=== PATIENT | female | born 1995 | race African-American/Black ===

== ENCOUNTER 2023-09-15 14:13 | Emergency (ER) | payer MEDICAID ==
[~2023-09-15] VITALS: Ht 167.6 cm; Wt 56.8 kg
[2023-09-15 14:20] VITALS: BP 134/62; PULSE 96; RESP 18; TEMP 98.1; O2SAT 100
[2023-09-15] MEDS ORDERED: NALO4SPR BOTHNSTRLS (16:01)
[2023-09-15] MEDS ORDERED: BUPR8TAB3 SL (16:01)
[2023-09-15] MEDS: BUPRENORPHINE 8MG SL TABLET SL ONE (16:10)
[2023-09-15] MEDS ORDERED: METR-167 MT (16:13)
[2023-09-15] MEDS ORDERED: DOXY100C5 MT (16:13)
[2023-09-15 16:30] LABS: BASOPHILS % 0.7 % (0.0-2.0); DIFFERENTIAL COMMENT 0; EOSINOPHILS % 0.1 % (0.0-5.0); HEMATOCRIT. 41.5 % (36.0-48.0); HEMOGLOBIN. 13.6 g/dL (12.0-16.0); LYMPHOCYTES % 38.3 % (20.0-50.0); MEAN CORPUSCULAR HEMOGLOBIN 25.8 pg (28.0-32.0); MEAN CORPUSCULAR HGB CONC 32.8 g/dL (31.0-37.0); MEAN CORPUSCULAR VOLUME 78.7 fL (81.0-99.0); MEAN PLATELET VOLUME 7.9 fl (7.4-10.4); NEUTROPHILS % 50.9 % (40.0-76.0); PLATELET 338 x1000/uL (130-400); RED BLOOD CELL COUNT 5.28 mill/uL (4.2-5.4); RED CELL DISTRIBUTION WIDTH 13.4 % (11.6-14.6); WHITE BLOOD COUNT 5.3 x1000/uL (4.5-11.0)
[2023-09-15 16:34] LABS: *AMPHETAMINES SCREEN URINE NEGATIVE (NEGATIVE); *BARBITURATES SCREEN URINE NEGATIVE (NEGATIVE); *BENZODIAZEPINES SCREEN URINE NEGATIVE (NEGATIVE); *COCAINE SCREEN URINE PRESUMPTIVE POSITIVE (NEGATIVE); CANNABINOID URINE SCREEN PRESUMPTIVE POSITIVE (NEGATIVE); ECSTASY MDMA SCREEN URINE NEGATIVE (NEGATIVE); METHADONE URINE SCREEN NEGATIVE (NEGATIVE); OPIATES URINE SCREEN PRESUMPTIVE POSITIVE (NEGATIVE); PHENCYCLIDINE URINE SCREEN NEGATIVE (NEGATIVE)
[2023-09-15 16:35] LABS: CARBON DIOXIDE 26 mEq/L (21-32); CHLORIDE 107 mEq/L (98-107); POTASSIUM 3.6 mEq/L (3.5-5.1); SODIUM 139 mEq/L (136-145)
[2023-09-15] MEDS: LIDOCAINE HCL 1% 20ML VIAL (Pyxis) INJ INFIL ONE (16:35)
[2023-09-15] MEDS: CEFTRIAXONE SODIUM 500MG VIAL IM ONE (16:35)
[2023-09-15 16:40] LABS: CREATININE 0.9 mg/dL (0.6-1.0)
[2023-09-15 16:41] LABS: GLUCOSE 85 mg/dL (70-105); UREA NITROGEN BLOOD 11 mg/dL (9-23)
[2023-09-15 16:42] LABS: ALANINE AMINOTRANSFERASE 11 IU/L (10-49); ALBUMIN 4.7 g/dL (3.2-4.8); ASPARTATE AMINOTRANSFERASE 17 IU/L (<34)
[2023-09-15 16:43] LABS: BILIRUBIN TOTAL 0.5 mg/dL (0.1-1.0); PROTEIN TOTAL 8.2 g/dL (6.0-8.3)
[2023-09-15 16:44] LABS: ETHANOL BLOOD < 10 mg/dL (<10)
[2023-09-15 16:54] LABS: HCG SCREEN NEGATIVE
[2023-09-18 08:10] LABS: CHLAMYDIA TRACHOMATIS NAA Negative (Negative); NEISSERIA GONORRHOEAE NAA Negative (Negative)
== END 2023-09-15 17:15 | disposition home or self-care (01) ==
LOC: ER 14:13
DX: F11.23 Opioid dependence with withdrawal (principal); N89.8 Other specified noninflammatory disorders of vagina
CPT/HCPCS: 87491; 87591; 80053; 80305; 81025; 80320; 84703; 85025; 36415; 96372; 99283; J0696; J3490; Z7610 ×3; G0480

== ENCOUNTER 2024-06-07 15:04 | Emergency (ER) | payer SELFPAY ==
[~2024-06-07] VITALS: Ht 157.5 cm; Wt 50.0 kg
[~2024-06-07 15:04] MED LIST: BUPR8TAB3 SL; DOXY100C5 MT; METR-167 MT; NALO4SPR BOTHNSTRLS
[2024-06-07 15:06] VITALS: BP 118/72; PULSE 115; RESP 18; TEMP 36.9; O2SAT 100
== END 2024-06-07 19:50 | disposition home or self-care (01) ==
LOC: ER 15:04
DX: F15.129 Other stimulant abuse with intoxication, unspecified (principal); F10.90 Alcohol use, unspecified, uncomplicated; F11.90 Opioid use, unspecified, uncomplicated; Y90.9 Presence of alcohol in blood, level not specified
CPT/HCPCS: 70450; 99284; Z7610 ×3